=== PATIENT | female | born 1990 | race American Indian/Alaskan Native ===

== ENCOUNTER 2019-05-14 10:47 | Emergency (ER) | payer SELFPAY ==
[2019-05-14 10:57] VITALS: BP 112/76
--- NOTE | 2019-05-14 12:50 | Emergency Department Report ---
Abscess Boil HPI - HPI Chief Complaint: Skin/Abscess/Foreign Body Stated Complaint: BOIL/BUTTOCK Time Seen by Provider: 05/14/19 12:45 Duration: >1 Week Location: Perianal Severity: Severe History: Yes Pain, Yes Previous History, No Fever, No Purulent Drainage, No Numbness, No Foreign Body, No Insect Bite HPI: 28-year-old -Chinese female presents to the emergency room complaining of a boil to the left gluteal cleft for 1 week. Patient states that she has a history of these boils. Patient denies any fever no drainage. Patient also complains of upper back stiffness and pain. Patient states she feels like she may have slept wrong. Patient states that she has taken a muscle relaxer and it only did his make her sleepy. Patient reports she's been taking ibuprofen and Advil for her pain. Home Medications: Previous Rx's Medication Instructions Recorded Last Taken Type Clindamycin [Clindamycin CAP] 300 mg PO Q8H #30 cap 05/14/19 Unknown Rx Methocarbamol [Robaxin] 500 mg PO BID PRN #14 tablet 05/14/19 Unknown Rx Allergies/Adverse Reactions: Allergies Allergy/AdvReac Type Severity Reaction Status Date / Time Sulfa (Sulfonamide Allergy Unknown Verified 05/14/19 10:53 Antibiotics) ED Review of Systems ROS: Stated complaint: BOIL/BUTTOCK Other details as noted in HPI Comment: All other systems reviewed and negative Constitutional: denies: chills, fever ED Past Medical Hx - Past Medical History Previous Medical History?: No - Surgical History Past Surgical History?: No - Social History Smoking Status: Current Every Day Smoker Substance Use Type: Alcohol - Medications Home Medications: Home Medications Medication Instructions Recorded Confirmed Last Taken Type Clindamycin [Clindamycin CAP] 300 mg PO Q8H #30 cap 05/14/19 Unknown Rx Methocarbamol [Robaxin] 500 mg PO BID PRN #14 tablet 05/14/19 Unknown Rx ED Abscess Boil Physical Exam - Exam General: Vital signs noted. No distress. Alert and acting appropriately. Size: 3 cm Exam: Yes Tenderness, Yes Fluctuance, Yes Normal Neurologic Exam, Yes Normal Circulation, No Surrounding Cellulites/Erythema, No Lymphangitis, No Crepitation, No Heart Murmur ED Course Vital Signs 05/14/19 10:53 Temperature 98.5 F Pulse Rate 116 H Respiratory 18 Rate Blood Pressure 112/76 O2 Sat by Pulse 98 Oximetry Critical care attestation.: If time is entered above; I have spent that time in minutes in the direct care of this critically ill patient, excluding procedure time. ED Medical Decision Making - Medical Decision Making 28-year-old -Chinese female presents to the emergency room complaining of a boil to the left gluteal cleft for 1 week. Patient states that she has a history of these boils. Patient denies any fever no drainage. Patient also complains of upper back stiffness and pain. Patient states she feels like she may have slept wrong. Patient states that she has taken a muscle relaxer and it only did his make her sleepy. Patient reports she's been taking ibuprofen and Advil for her pain. Discussed with patient and the treatment plan will be to incision and drain the abscess of her X gluteal cleft. Patient declines wanting to have incision and drained as if she cannot be put under sleep. I discussed the patient that I can place her on antibiotics and have her follow up with the general surgeon. Patient be discharged home on clindamycin and Robaxin. ED Disposition Clinical Impression: Muscle strain of shoulder region, Abscess, gluteal, left Disposition: DC-01 TO HOME OR SELFCARE Is pt being admited?: No Does the pt Need Aspirin: No Condition: Stable Instructions: Muscle Strain (ED), Abscess (ED) Prescriptions: Clindamycin [Clindamycin CAP] 300 mg PO Q8H #30 cap Methocarbamol [Robaxin] 500 mg PO BID PRN #14 tablet PRN Reason: Muscle Spasm Referrals: ENRRIQUE LANDEROS DO [Staff Physician] - 3-5 Days Forms: Work/School Release Form(ED)
== END 2019-05-14 13:10 | disposition home or self-care (01) ==
LOC: ED 10:47
DX: S46.912A Strain of unspecified muscle, fascia and tendon at shoulder and upper arm level, left arm, initial encounter (principal); L02.31 Cutaneous abscess of buttock; F17.200 Nicotine dependence, unspecified, uncomplicated; F10.10 Alcohol abuse, uncomplicated; Z79.899 Other long term (current) drug therapy; Z88.2 Allergy status to sulfonamides; X58.XXXA Exposure to other specified factors, initial encounter; Y93.89 Activity, other specified; Y92.89 Other specified places as the place of occurrence of the external cause; Y99.8 Other external cause status

== ENCOUNTER 2021-09-16 10:10 | Emergency (ER) | payer SELFPAY ==
--- NOTE | 2021-09-16 10:49 | Event Note ---
ED Screening Note ED Screening Note: numerous complaints abd pain- diffuse rectal bleeding incontinence urine boils under arms and on her butt denies vag dc denies fever; pos chills pcp denies having one rx none tearful on exam This initial assessment/diagnostic orders/clinical plan/treatment(s) is/are subject to change based on patients health status, clinical progression and re- assessment by fellow clinical providers in the ED. Further treatment and workup at subsequent clinical providers discretion. Patient/guardian urged not to elope from the ED as their condition may be serious if not clinically assessed and managed. Initial orders include: will have MD ochoa
[2021-09-16 11:15] LABS: Bilirubin,Urine NEG (Negative); Blood,Urine NEG (Negative); Color,Urine Yellow (Yellow); Hyaline Casts,Urine 1 /LPF; Protein,Urine <15 mg/dL mg/dL (Negative); RBC,Urine < 1.0 /HPF (0.0-6.0); Urobilinogen,Urine < 2.0 mg/dL (<2.0)
[2021-09-16] MEDS ORDERED: KETOROLAC 30 MG/1 ML INJ IV ONE (11:22)
[2021-09-16] MEDS ORDERED: SODIUM CHLORIDE 0.9% 1000 ML 1,000 ML IV ONE (11:22)
[2021-09-16] MEDS ORDERED: LIDOCAINE 1%/EPINEPHRINE 1:100,000 VIAL (20 ML) INFILTRATI NR (11:30)
[2021-09-16 11:31] LABS: Basophils # (Auto) 0.1 K/mm3 (0.0-0.1); Basophils % (Auto) 1.1 % (0.0-1.8); Eosinophils # (Auto) 0.1 K/mm3 (0.0-0.4); Eosinophils % (Auto) 1.2 % (0.0-4.3); Hematocrit 35.4 % (30.3-42.9); Hemoglobin 11.8 gm/dl (10.1-14.3); Lymphocytes # (Auto) 1.4 K/mm3 (1.2-5.4); Lymphocytes % (Auto) 26.1 % (13.4-35.0); Mean Corpuscular HGB Conc 33 % (30-34); Mean Corpuscular Volume 90 fl (79-97); Monocytes # (Auto) 0.6 K/mm3 (0.0-0.8); Monocytes % (Auto) 10.3 % (0.0-7.3); Platelet Count 297 K/mm3 (140-440); Red Blood Count 3.92 M/mm3 (3.65-5.03); Red Cell Distribution Width 13.8 % (13.2-15.2)
--- NOTE | 2021-09-16 11:52 | Emergency Department Report ---
ED General Adult HPI - General Chief complaint: Abdominal Pain Stated complaint: BLOOD IN URINE Time Seen by Provider: 09/16/21 11:04 Source: patient Mode of arrival: Ambulatory Limitations: No Limitations - History of Present Illness Initial comments: Patient is a 30-year-old F Sw[place] female who is presenting with several complaints. Tract complains of the patient states that she noticed some blood per rectum 3 days ago. Started having some crampy lower abdominal and lower back pain. States she urinated and then felt a lot of gas and some clots passed when she was passing gas. This occurred 1 more additional time but states she was afraid to have any additional bowel movements. Denies dysuria. Abdominal pain estimated at 5 out of 10 in severity. Crampy in nature. Secondly the patient has a long history of hidradenitis and has abscesses on the bilateral adnexal regions as well as a healing abscess on her buttock. Abscess on the left arm is the most painful and is currently not draining. Abscess on the right axilla is actively draining and is less painful at this time. - Related Data Previous Rx's Medication Instructions Recorded Last Taken Type Clindamycin [Clindamycin CAP] 300 mg PO Q8H #30 cap 05/14/19 Unknown Rx Methocarbamol [Robaxin] 500 mg PO BID PRN #14 tablet 05/14/19 Unknown Rx Clindamycin [Clindamycin CAP] 300 mg PO Q8H #30 cap 09/16/21 Unknown Rx HYDROcodone/APAP 5-325 [[place] 1 each PO Q6HR PRN #14 tablet 09/16/21 Unknown Rx 5/325] Hydrocort/Pramoxine [Proctofoam-Hc] 10 gm MT DAILY #1 can 09/16/21 Unknown Rx Ibuprofen [Motrin 800 MG tab] 800 mg PO Q8HR PRN #20 tablet 09/16/21 Unknown Rx metroNIDAZOLE [Flagyl] 500 mg PO Q12HR #10 tab 09/16/21 Unknown Rx Allergies Allergy/AdvReac Type Severity Reaction Status Date / Time Sulfa (Sulfonamide Allergy Mild Unknown Verified 09/16/21 12:22 Antibiotics) ED Review of Systems ROS: Stated complaint: BLOOD IN URINE Other details as noted in HPI Comment: All other systems reviewed and negative ED Past Medical Hx - Past Medical History Previous Medical History?: No - Social History Smoking Status: Current Every Day Smoker Substance Use Type: Alcohol - Medications Home Medications: Home Medications Medication Instructions Recorded Confirmed Last Taken Type Clindamycin [Clindamycin CAP] 300 mg PO Q8H #30 cap 05/14/19 Unknown Rx Methocarbamol [Robaxin] 500 mg PO BID PRN #14 tablet 05/14/19 Unknown Rx Clindamycin [Clindamycin CAP] 300 mg PO Q8H #30 cap 09/16/21 Unknown Rx HYDROcodone/APAP 5-325 [[place] 1 each PO Q6HR PRN #14 tablet 09/16/21 Unknown Rx 5/325] Hydrocort/Pramoxine [Proctofoam-Hc] 10 gm MT DAILY #1 can 09/16/21 Unknown Rx Ibuprofen [Motrin 800 MG tab] 800 mg PO Q8HR PRN #20 tablet 09/16/21 Unknown Rx metroNIDAZOLE [Flagyl] 500 mg PO Q12HR #10 tab 09/16/21 Unknown Rx ED Physical Exam - General Limitations: No Limitations General appearance: alert, in no apparent distress - Head Head exam: Present: atraumatic, normocephalic - Eye Eye exam: Present: normal appearance - ENT ENT exam: Present: mucous membranes moist - Neck Neck exam: Present: normal inspection - Respiratory Respiratory exam: Present: normal lung sounds bilaterally. Absent: respiratory distress, wheezes, rales, rhonchi - Cardiovascular Cardiovascular Exam: Present: regular rate, normal rhythm, normal heart sounds. Absent: systolic murmur, diastolic murmur, rubs, gallop - GI/Abdominal GI/Abdominal exam: Present: soft, normal bowel sounds. Absent: distended, tenderness, guarding, rebound - Rectal Rectal exam: Present: hemorrhoids (decompressed) - Extremities Exam Extremities exam: Present: normal inspection - Back Exam Back exam: Present: normal inspection - Neurological Exam Neurological exam: Present: alert, oriented X3 - Psychiatric Psychiatric exam: Present: normal affect, normal mood - Skin Skin exam: Present: warm, dry, intact, normal color, other (Scarring to the bila teral adnexa. Nickel sized abscess with central fluctuance and no draining on the left axilla. Right axilla shows a dime sized abscess which is actively draining at this time.). Absent: rash ED Course Vital Signs 09/16/21 09/16/21 09/16/21 10:35 11:07 11:15 Temperature 98.0 F Pulse Rate 93 H Respiratory 16 Rate Blood Pressure 106/74 113/72 O2 Sat by Pulse 100 100 100 Oximetry 09/16/21 09/16/21 09/16/21 11:31 11:45 12:01 Temperature Pulse Rate Respiratory Rate Blood Pressure 113/72 113/72 O2 Sat by Pulse 100 100 100 Oximetry 09/16/21 09/16/21 12:07 12:15 Temperature Pulse Rate Respiratory Rate Blood Pressure 113/72 O2 Sat by Pulse 100 99 Oximetry ED Medical Decision Making - Lab Data Result diagrams: 09/16/21 11:14 09/16/21 11:14 - Radiology Data Ordering Physician: BEATRICE PAYTON MD Date of Service: 09/16/21 Procedure(s): CT abdomen pelvis w con Accession Number(s): [id number] cc: BEATRICE PAYTON MD CT ABDOMEN AND PELVIS WITH CONTRAST INDICATION / CLINICAL INFORMATION: abd pain, bloody stool. TECHNIQUE: Axial CT images were obtained through the abdomen and pelvis after IV contrast. All CT scans at this location are performed using CT dose reduction for [employer] by means of automated exposure control. COMPARISON: None available. FINDINGS: LOWER CHEST: No significant abnormality. LIVER: No significant abnormality. GALLBLADDER: No significant abnormality. PANCREAS: No significant abnormality. SPLEEN: No significant abnormality. ADRENALS: No significant abnormality. RIGHT KIDNEY / URETER: No significant abnormality. LEFT KIDNEY / URETER: No significant abnormality. STOMACH / SMALL BOWEL: No significant abnormality. COLON: Moderate stool burden. APPENDIX: Surgically absent. PERITONEUM: No free fluid, free air or organized collection. LYMPH NODES: No significant adenopathy. AORTA / ARTERIES/ VEINS: No significant abnormality. URINARY BLADDER: No significant abnormality. REPRODUCTIVE ORGANS: Multiple ovarian cysts bilaterally. Largest on the right measures approximately 4.7 cm. Largest on the left measures 3.6 cm. ADDITIONAL FINDINGS: Focal area of subcutaneous induration along the right gluteal/flank region measures approximately 3.1 x 1.0 x 3.9 cm. SKELETAL SYSTEM: No significant abnormality. IMPRESSION: 1. No acute abnormality within the abdomen or pelvis. 2. Focal area of subcutaneous induration along the right gluteal/flank region, could reflect subcutaneous abscess. Recommend correlation with physical exam findings. 3. Multiple ovarian cysts bilaterally as detailed above. Given patient age, these are presumably physiologic. However, if clinically indicated, these could be further evaluated with pelvic ultrasound in outpatient setting in approximately 8-10 weeks. Signer Name: Darius Rivera MD Signed: 09/16/2021 12:51 PM Workstation Name: [email or web address] - Medical Decision Making Patient is a 30-year-old F Sw[place] female who is here complaining of multiple complaints. Regarding the possible GI bleed the patient CT shows no bowel abnormality. She does have a decompressed hemorrhoid externally on rectal exam this likely is the source of patient's bleeding. Patient be started on is Proctofoam. Patient also has several abscesses most of which are draining in the bilateral adnexa and on her buttock. The abscess on the left axilla is approximately nickel sized and is not draining at this time. Patient has declined I&D and states she like to try warm compresses and antibiotics. We will also give the patient general surgery follow-up. Additionally the patient is states she states she is having some thin watery discharge. There is no foul odor is no new sexual contact. Placed the patient on Flagyl for possible b acterial vaginosis as well. Patient be discharged home. Critical care attestation.: If time is entered above; I have spent that time in minutes in the direct care of this critically ill patient, excluding procedure time. ED Disposition Clinical Impression: Hydradenitis, External hemorrhoid, Bacterial vaginosis, Ovarian cyst Disposition: 01 HOME / SELF CARE / HOMELESS Is pt being admited?: No Does the pt Need Aspirin: No Condition: Stable Instructions: Abdominal Pain (ED), Bacterial Vaginosis (ED), Bacterial Vaginosis, [id number], Ovarian Cyst, [id number], Hemorrhoids, Hidradenitis Suppurativa Referrals: DIAMOND PRESLEY MD [Staff Physician] - 3-5 Days (For evaluation of abcesses ) HUNTER MARIN MD [Staff Physician] - 3-5 Days (OBGYN) Time of Disposition: 13:22
[2021-09-16 11:53] LABS: Alanine Aminotransferase 25 units/L (7-56); Blood Urea Nitrogen 8 mg/dL (7-17); Calcium 9.3 mg/dL (8.4-10.2); Hemolysis Index 8
[2021-09-16 11:58] LABS: BUN/Creatinine Ratio 16
[2021-09-16 12:23] VITALS: BP 113/72
--- NOTE | 2021-09-16 12:55 | Cat Scan Report ---
CT ABDOMEN AND PELVIS WITH CONTRAST INDICATION / CLINICAL INFORMATION: abd pain, bloody stool. TECHNIQUE: Axial CT images were obtained through the abdomen and pelvis after IV contrast. All CT sc ans at this location are performed using CT dose reduction for [place] by means of automated exposure c ontrol. COMPARISON: None available. FINDINGS: LOWER CHEST: No significant abnormality. LIVER: No significant abnormality. GALLBLADDER: No significant abnormality. PANCREAS: No significant abnormality. SPLEEN: No significant abnormality. ADRENALS: No significant abnormality. RIGHT KIDNEY / URETER: No significant abnormality. LEFT KIDNEY / URETER: No significant abnormality. STOMACH / SMALL BOWEL: No significant abnormality. COLON: Moderate stool burden. APPENDIX: Surgically absent. PERITONEUM: No free fluid, free air or organized collection. LYMPH NODES: No significant adenopathy. AORTA / ARTERIES/ VEINS: No significant abnormality. URINARY BLADDER: No significant abnormality. REPRODUCTIVE ORGANS: Multiple ovarian cysts bilaterally. Largest on the right measures approximately 4.7 cm. Largest on the left measures 3.6 cm. ADDITIONAL FINDINGS: Focal area of subcutaneous induration along the right gluteal/flank region measu res approximately 3.1 x 1.0 x 3.9 cm. SKELETAL SYSTEM: No significant abnormality. IMPRESSION: 1. No acute abnormality within the abdomen or pelvis. 2. Focal area of subcutaneous induration along the right gluteal/flank region, could reflect subcuta neous abscess. Recommend correlation with physical exam findings. 3. Multiple ovarian cysts bilaterally as detailed above. Given patient age, these are presumably phy siologic. However, if clinically indicated, these could be further evaluated with pelvic ultrasound i n outpatient setting in approximately 8-10 weeks. Signer Name: Darius Rivera MD Signed: 09/16/2021 12:51 PM Workstation Name: [email or web address]
== END 2021-09-16 15:31 | disposition home or self-care (01) ==
LOC: ED 10:10
DX: K64.4 Residual hemorrhoidal skin tags (principal); N76.0 Acute vaginitis; L73.2 Hidradenitis suppurativa; N83.209 Unspecified ovarian cyst, unspecified side; F17.200 Nicotine dependence, unspecified, uncomplicated; Z88.2 Allergy status to sulfonamides
CPT/HCPCS: 36415; 74177; 80053; 81001; 82271; 83690; 84703; 85025; 96361; 96374; 99284; J1885; J7030; Q9967; Q0162